=== PATIENT | female | born 1985 | race Caucasian/White ===

== ENCOUNTER → 2017-10-29 14:42 | Outpatient (CLI) | payer OTHER, SELFPAY ==
--- NOTE | 2017-10-29 14:45 | US_ITS ---
US OB transvaginal HISTORY: ITS.REASON: US OB Dates ORDERING PHYSICIAN: Joshua Monroe MD PATIENT AGE: 32 years COMPARISON: None FINDINGS: An intrauterine gestational sac is present with a pole with a crown-rump length of 1.46cm correlating to gestational age of 7w6d . heart tones are present with an FHR of 160 bpm's. Yolk sac is noted. Adnexa: Right ovary has an unremarkable appearance. The left ovary is not demonstrated. IMPRESSION: Live intrauterine gestation at 7 weeks 6 days days as described above. Estimated due date by ultrasound is 06/13/2018
[2017-10-29 16:22] LABS: Basophils # 0.1 K/mm3 (0-0.2); Basophils % 0.5 % (0.1-2.0); Eosinophils # 0.4 K/mm3 (0.0-0.4); Eosinophils % 2.4 % (0.1-12.0); Hematocrit 39.8 % (37.0-47.0); Hemoglobin 13.3 g/dL (12.2-16.2); Lymphocytes # 3.7 K/mm3 (0.7-4.5); Lymphocytes % 23.7 K/mm3 (10-50); Mean Corpuscular HGB Conc 33.4 g/dL (31.8-35.4); Mean Corpuscular Hemoglobin 31.3 pg (27.0-31.2); Mean Corpuscular Volume 93.6 fl (81-99); Mean Platelet Volume 6.9 fl (7.4-10.4); Monocytes # 0.9 K/mm3 (0.1-1.0); Monocytes % 5.7 % (1.7-9.3); Neutrophils # 10.6 K/mm3 (1.8-7.8); Neutrophils % 67.9 % (37.0-80.0); Platelet Count 355 K/mm3 (142-424); Red Blood Count 4.25 M/mm3 (4.20-5.40); Red Cell Distribution Width 12.1 % (11.5-17.5); White Blood Count 15.6 K/mm3 (4.8-10.8)
[2017-10-29 16:23] LABS: MANUAL DIFFERENTIAL MANUAL DIFFERENTIAL (MANUAL DIFF)
[2017-10-29 17:00] LABS: Lymphocytes % 21 % (10-50); Monocytes % 9 % (2-9); Neutrophils % 68 % (42-76); Platelet Estimate Normal; RBC Morphology Normal; Total Cells Counted 100
[2017-10-31 20:32] LABS: HIV Screen 4th Generation wRfx Non Reactive (Non Reactive); Hepatitis B Surface Antigen Negative (Negative); Hepatitis C Antibody 0.1 s/co ratio (0.0-0.9); Rapid Plasma Reagin Ab Titer Non Reactive (NonRea<1:1)
[2017-11-01 09:49] LABS: Rubella Antibodies, IgG 1.24 index (Immune >0.99)
== END ==
PROVIDERS: Family Provider Pediatrics; PCP Nurse Practitioner Obstetrics & Gynecology; Visit Provider Nurse Practitioner Obstetrics & Gynecology
DX: O26.841 Uterine size-date discrepancy, first trimester (principal); Z34.90 Encounter for supervision of normal pregnancy, unspecified, unspecified trimester
CPT/HCPCS: 36415; 76830; 85007; 85025; 86592; 86703; 86762; 86850; 87340; 87380; G0432

== ENCOUNTER → 2018-01-21 10:03 | Outpatient (CLI) | payer OTHER, SELFPAY ==
--- NOTE | 2018-01-21 10:05 | US_ITS ---
US OB /maternal detail: INDICATION: Dates and anatomy ITS.REASON: US OB Complete 20wk+ Anatomy [id number] ORDERING PHYSICIAN: Joshua Monroe MD PATIENT AGE: 32 years TECHNIQUE: ultrasound transabdominal scanning. COMPARISON: No previous relevant studies. FINDINGS: Single viable intrauterine gestation. Cephalic position. Placenta: Posterior placenta grade 1. There is normal amount fluid. The cervix appears satisfactory. Closed and measuring 3.1 cm in length. Complete survey performed and was unremarkable on the submitted images as in PACS. No discrete anomalies identified on survey imaging by technologist. Active fetus. Three-vessel cord with satisfactory umbilical cord insertion. 4- chamber heart noted. Survey of brain & ventricles. Face and neck survey unremarkable. Diaphragm and chest views unremarkable. Abdomen: Both kidneys noted and unremarkable. Stomach noted and satisfactory. Spine: Survey of the spine satisfactory with no anomalies identified nor imaged. Both arms and legs noted. Amniotic Fluid: Adequate. Maternal adnexa: No significant findings. Measurements: Average ultrasound age 20 weeks and 2 days. Gestational Age 19 weeks 4 days. Estimated due date by ultrasound age 306/08/2018. Estimated weight 346 g +/- 51 g grams. BPD = 4.67 cm equaling 20 weeks 1 day OFD = 6.2 cm equaling 20 weeks 6 days HC = 17.24 cm equaling 19 weeks 6 days AC = 14.99 cm equaling 20 weeks 2 days FL = 3.37 cm equaling 20 weeks 4 days Growth Percentile= Heart Rate = 147 bpm Cerebellum = 1.97 cm equaling 20 weeks 1 day Humerus = 3.137 g equaling 20 weeks 3 days HC/AC is 1.15. CI is 75%. FL/BPD is 72% FL/AC is 22%. IMPRESSION: Active viable cephalic fetus, visualized anatomy grossly normal
== END ==
PROVIDERS: PCP Pediatrics; Visit Provider Nurse Practitioner Obstetrics & Gynecology
DX: Z36.0 Encounter for antenatal screening for chromosomal anomalies (principal)
CPT/HCPCS: 76805; 76811

== ENCOUNTER → 2018-04-01 10:49 | Outpatient (CLI) | payer OTHER, SELFPAY ==
[2018-04-01 11:43] LABS: Glucose,Fasting 81 mg/dL (60-105)
[2018-04-01 13:07] LABS: Glucose 1 Hour 147 mg/dL (74-106)
== END ==
PROVIDERS: Visit Provider Nurse Practitioner Obstetrics & Gynecology
DX: O99.810 Abnormal glucose complicating pregnancy (principal); Z34.90 Encounter for supervision of normal pregnancy, unspecified, unspecified trimester
CPT/HCPCS: 36415; 82951

== ENCOUNTER → 2018-05-19 16:55 | Outpatient (CLI) | payer OTHER, SELFPAY | PROVIDERS: Visit Provider Nurse Practitioner Obstetrics & Gynecology | DX: Z34.90 Encounter for supervision of normal pregnancy, unspecified, unspecified trimester (principal) | CPT/HCPCS: 86403 ==

== ENCOUNTER 2018-06-06 04:36 | Inpatient (IN) ==
[2018-06-06 05:42] LABS: Basophils # 0.1 K/mm3 (0-0.2); Basophils % 0.5 % (0.1-2.0); Eosinophils # 0.4 K/mm3 (0.0-0.4); Eosinophils % 2.5 % (0.1-12.0); Hematocrit 34.6 % (37.0-47.0); Hemoglobin 11.6 g/dL (12.2-16.2); Lymphocytes # 4.1 K/mm3 (0.7-4.5); Lymphocytes % 24.6 % (10-50); Mean Corpuscular HGB Conc 33.4 g/dL (31.8-35.4); Mean Corpuscular Volume 89.7 fl (81-99); Mean Platelet Volume 7.1 fl (7.4-10.4); Monocytes # 0.9 K/mm3 (0.1-1.0); Monocytes % 5.2 % (1.7-9.3); Neutrophils # 11.2 K/mm3 (1.8-7.8); Neutrophils % 67.3 % (37.0-80.0); Platelet Count 455 K/mm3 (142-424); Red Blood Count 3.86 M/mm3 (4.20-5.40); Red Cell Distribution Width 13.1 % (11.5-17.5); White Blood Count 16.6 K/mm3 (4.8-10.8)
[2018-06-06 05:59] LABS: Lymphocytes % 24 % (10-50); Monocytes % 2 % (2-9); Neutrophils % 69 % (42-76); RBC Morphology Normal; Rouleaux 2+; Total Cells Counted 100
--- NOTE | 2018-06-06 08:48 | Progress Note ---
Labor Note - Subjective: Date: 06/06/18 Time: 08:15 regular contraction - Objective: NST:: Reactive Contractions:: every 4-5 minutes Cervical Dilation:: 2 Effacement:: 100% Station: -1 Membranes: artificially ruptured Comment:: She had a tight scar on her cervix from her previous LEEP procedure. I was able to pass the amnio hook through the cervix and ruptured membranes. There was clear fluid. I then stuck my finger through her cervix and it dilated immediately to 2 cm. - Fetus: Monitoring?: Yes monitoring type:: External - Assessment: Labor progressing?: Yes Cephalopelvic disproportion?: No Patient Problems: All Active Problems (Acute) - Plan: Anesthesia for epidural?: Yes Continue to labor down?: Yes Plan for ?: No Continue to monitor?: Yes Start pushing?: No
--- NOTE | 2018-06-06 08:50 | History & Physical Report ---
OB - H&P: HPI Antepartum - History of Present Illness Chief complaint: History of precipitous labor History of present illness: She is a 32-year-old 5 para 4 at 39 weeks gestational age. Her last 2 babies have delivered precipitously and she said that as soon as she ruptured her membranes she went into active labor and progressed rapidly to full dilation. As a result of that she was offered induction of labor at term. [place] lives approximately [place]. - History of Present Criteria for establishing EDC:: LMP confirmed by 1st trimester US care: good care Ultrasounds: normal 1st trimester US, normal mid trimester US Obstetrical complications: none Medical complications: none [facility] History I have reviewed the patient's past medical history: Yes *Have you ever received a pneumonia vaccine?: No *Have you received a flu vaccine this season?: No Other Surgeries: No: Amputation: No Fractures: No - *Social History Smoking Status: Current some day smoker Alcohol Intake: never Substance Use Type: denies use *Occupational Status:: employed Family Hx:: No significant family history Para: 4 Review of Systems - Review of Systems Review of systems:: pertinent systems reviewed and negative unless documented below Meds Home Medications Medication Instructions Recorded Confirmed Type ondansetron 4 mg disintegrating 4 mg PO QID PRN #30 tab 01/21/18 06/06/18 Rx tablet Ferrous Sulfate 325 mg PO DAILY 06/06/18 06/06/18 History Vit Calc,Iron,Folic [Kpn] 1 tab PO HS 06/06/18 06/06/18 History raNITIdine HCl [Ranitidine HCl] 150 mg PO BID 06/06/18 06/06/18 History Allergies Allergy/AdvReac Type Severity Reaction Status Date / Time No Known Allergies Allergy Unverified 06/06/18 07:36 OB - H&P: Exam - Constitutional no acute distress - Routine HEENT Exam Head: Present: normocephalic Eye: Present: EOMI, PERRL ENT: Present: mucous membranes moist - Routine Neck Exam Present: supple, full ROM - Routine Respiratory Exam Absent: accessory muscle use (good air entry bilaterally), respiratory distress, wheezes, crackles - Routine Cardiovascular Exam Present: RRR. Absent: murmur - Routine Abdominal Exam Present: soft, normoactive bowel sounds. Absent: tenderness, distended, guarding - Routine Rectal Exam Patient deferred: visual exam, digital exam - Routine Exam Patient deferred: external exam, groin exam, perineal exam - Routine Extremities Exam Present: full ROM. Absent: cyanosis, edema - Routine Skin Exam Present: intact. Absent: cyanosis - Routine Neurological Exam Present: alert, oriented X3 - Routine Psychiatric Exam Present: normal affect OB - Results - Labs Labs: Short CBC 06/06/18 Range/Units 05:25 WBC 16.6 H (4.8-10.8) K/mm3 Hgb 11.6 L (12.2-16.2) g/dL Hct 34.6 L (37.0-47.0) % Plt Count 455 H (142-424) K/mm3 OB - A/P Antepartum (1) History of precipitous labor and deliveries, antepartum Current visit: Yes Status: Acute (2) Normal delivery at term Current visit: Yes Status: Acute - Additional Plan Planning to breastfeed?: Yes Plan: induction Additional Information:: She has a history of precipitous labor in the past as result of that we have elected to induce her labor at term.
--- NOTE | 2018-06-06 09:04 | Progress Note ---
[facility] Anesthesia Checklist - Structural Data Admitted From: Inpatient Planned Operative Procedure/s: labor epidural Consent for Planned Operative Procedure(s) Verified: Yes - Airway Assessment C-Spine Mobility Assessed: Yes TMJ Mobility Assessed: Yes Dentition: Good Dentition - Neurological Assessment Level of Consciousness: Awake, Alert, Appropriate - Anesthesia Plan Anesthesia Risk discussed: Yes Anesthesia Plan: Verified ASA Class: II Anesthesia Type: Epidural [facility] History I have reviewed the patient's past medical history: Yes *Have you ever received a pneumonia vaccine?: No *Have you received a flu vaccine this season?: No Other Surgeries: No: Amputation: No Fractures: No - *Social History Smoking Status: Current some day smoker Alcohol Intake: never Substance Use Type: denies use *Occupational Status:: employed Family Hx:: No significant family history Para: 4
[2018-06-06 09:54] LABS: Microscopic, Urine URINE MICROSCOPIC (MICROSCOPIC)
[2018-06-06 11:33] LABS: Appearance,Urine CLEAR (Clear); Bilirubin,Urine Negative (Negative); Blood, Urine 2+ (Negative); Color,Urine YELLOW (Yellow); Glucose,Urine (UA) Negative (Negative); Ketones,Urine Negative (Negative); Leukocyte Esterase,Urine Negative (Negative); PH,Urine 7.5 (5.0-8.5); Protein,Urine Negative (Negative); Urobilinogen,Urine 0.2 EU/dl (0.2)
[2018-06-06 11:49] LABS: Bacteria,Urine 1+ /lpf
--- NOTE | 2018-06-06 11:51 | Procedure Note ---
- Delivery Note Delivery Date:: 06/06/18 Delivery Time:: 11:37 Anesthesia Type: Epidural Was labor medically induced?: Yes Induction method: per pitocin protocol Gestational age (weeks): 39 Infant delivered prior to 39 weeks?: No Infant Gender: Female at 1 minute: 8 at 5 minutes: 9 Delivery Procedure:: She is a 32-year-old 5 para 4 who has a history of precipitous labor. She lives about [place] from [facility]. As result of that we elected to induce her labor at term. She was started on IV oxytocin and had her membranes ruptured. She progressed to full dilation under labor epidural. She delivered spontaneously a liveborn female child at 11:37 AM on the morning of June 06, 2018. The baby was a liveborn female child with Apgars of 8 at 1 minute and 9 at 5 minutes. On deliver the head there was a tight nuchal cord. I elected to deliver the rest the infant's body atraumatically. I was able to then reduce the cord it was wrapped around the baby's waist as well as once around its neck. We allowed the cord to continue to pulsate for 1 minute. The baby cried spontaneously and the oropharynx and nasopharynx were bulb suction. We then doubly clamped the cord and cut the cord. The baby was then placed on the mother's abdomen for further care. The nurses assigned Apgars of 8 at 1 minute and 9 at 5 minutes. We then obtained cord blood as well as cord pH. Using gentle traction on the cord and countertraction the fundus I was able to easily deliver the placenta intact. He had a normal three-vessel cord. There were no perineal or vaginal lacerations. She has a positive blood, she is rubella immune and was group A streptococcus positive. She did receive IV antibiotics while in labor. Her gyroscopic instrument tester is Dr. Huffman. Estimated blood loss was approximately 400 cc. Placental Delivery Description: Spontaneous
[2018-06-07 05:40] LABS: Hematocrit 35.4 % (37.0-47.0); Hemoglobin 11.7 g/dL (12.2-16.2)
--- NOTE | 2018-06-07 08:14 | Progress Note ---
Internal Medicine - PN: Subj *Date: 06/07/18 *Time: 08:13 Interval history: She continues to do well. She is eating and drinking and ambulating. She is bottlefeeding. Her lochia is normal. Exam Vital signs and Labs for Last 24 Hours: Temp 98.3 F 06/06/18 11:08 Laboratory Results - last 24 hr 06/06/18 09:50: Urine Color Yellow, Urine Appearance Clear, Urine pH 7.5, Ur Specific Edwards 1.010, Urine Protein Negative, Urine Glucose (UA) Negative, Urine Ketones Negative, Urine Blood 2+, Urine Nitrate Negative, Urine Bilirubin Negative, Urine Urobilinogen 0.2, Ur Leukocyte Esterase Negative, Urine RBC 5- 10, Urine WBC 3-5, Ur Squamous Epith Cells 5-10, Urine Bacteria 1+ 06/06/18 11:51: Cord ABG pH 7.37 06/07/18 05:09: Hgb 11.7 L, Hct 35.4 L I & O for Last 24 hours: Intake & Output 06/04/18 06/05/18 06/06/18 06/07/18 10:59 11:59 11:59 11:59 Weight 186 lb - Constitutional no acute distress Assessment and Plan (1) History of precipitous labor and deliveries, antepartum Current visit: Yes Status: Acute Category: Medical Code(s): O09.219 - Supervision of with history of pre-term labor, unspecified trimester (2) Normal delivery at term Current visit: Yes Status: Acute Category: Medical Code(s): O80 - Encounter for full-term uncomplicated delivery - Assessment and plan all Dx Assessment and Plan for all problems:: She is doing well this morning. We will plan to send her home tomorrow.
--- NOTE | 2018-06-08 10:03 | Discharge Summary ---
General - General Admission date:: 06/06/18 Discharge date: 06/08/18 HPI HPI: She is a 32-year-old 5 now para 5 who was 39 weeks gestational age. She has a history of precipitous labor and as result of that was brought in for induction of labor at term. She lives about [place] [address] out of town. Hospital Course Hospital Course: She was started on IV oxytocin. She had her membranes ruptured and under labor epidural progressed to full dilation. She delivered spontaneously a liveborn female child at 11:37 AM on the morning of June 06, 2018. The baby weighed 7 pounds 12 ounces and was 20 inches long. She had Apgars of 8 at 1 minute and 9 at 5 minutes. She has done well and has remained afebrile throughout her hospitalization. She is eating and drinking and ambulating. She is breast- feeding. She has a positive blood, she is rubella immune and was group A streptococcus positive. She did receive IV antibiotics while in labor. She is discharged home to follow-up with me in approximately 2 weeks time. She will continue with her vitamins and iron. She is taking [id number] analgesics. Her condition on discharge is stable. Rhogam Administration: Not Indicated Objective Vital signs: Temp 98.3 F 06/06/18 11:08 DS: Diagnosis - Discharge Diagnosis (1) History of precipitous labor and deliveries, antepartum Status: Acute (2) Normal delivery at term Status: Acute Discharge Plan - Patient Discharge Instructions ACTIVITY: No heavy lifting DIET: continue same diet Patient Instructions: DI for Hemorrhage, DI for Depression, [facility] Post Discharge Instructions - Follow up Plan Follow up with: Joshua Monroe MD [Staff Physician] - 06/20/18 2:45 am Disposition: Home, Self-Intermediate Medications: Home Medications Medication Instructions Recorded Confirmed Type ondansetron 4 mg disintegrating 4 mg PO QID PRN #30 tab 01/21/18 06/06/18 Rx tablet Ferrous Sulfate 325 mg PO DAILY 06/06/18 06/06/18 History Vit Calc,Iron,Folic [Kpn] 1 tab PO HS 06/06/18 06/06/18 History raNITIdine HCl [Ranitidine HCl] 150 mg PO BID 06/06/18 06/06/18 History Prescriptions/Medication Reconciliation: Continue ondansetron 4 mg disintegrating tablet 4 mg PO QID PRN #30 tab PRN Reason: nausea and vomiting Ferrous Sulfate 325 mg PO DAILY Vit Calc,Iron,Folic [Kpn] 1 tab PO HS raNITIdine HCl [Ranitidine HCl] 150 mg PO BID
== END 2018-06-08 11:06 | disposition home or self-care (01) | DRG 807 ==
LOC: OB 04:59
PROVIDERS: ADMIT Nurse Practitioner Obstetrics & Gynecology; ATTEND Nurse Practitioner Obstetrics & Gynecology
CPT/HCPCS: 36415; 59025; 81001; 82800; 85007; 85014; 85018; 85025; 86850; 90715; J0290

== ENCOUNTER 2024-04-28 09:26 | Outpatient (CLI) | payer OTHER, SELFPAY ==
--- NOTE | 2024-04-28 09:27 | US_ITS ---
PROCEDURE: US TRANSVAGINAL CLINICAL INDICATION: Heavy Menstrual Bleeding COMPARISON: No exams were available for comparison FINDINGS: Transvaginal sonographic images of the pelvis were obtained. UTERUS: 9.6 cm x 7.5 cmx 5.4cm anteverted with a combined endometrial thickness of 12.8mm. Are multiple small blebs of the endometrium consistent with adenomyosis. There is a nabothian cyst in the cervix. The posterior wall of the uterus appears thickened and heterogenous and suspect this may be adenomyosis. LEFT OVARY: 1.8 cmx1.5 cmx1.2cm with a volume of 1.7ml. RIGHT OVARY: 2.5cmx 1.8 cm x2.1cm with a volume of 4.6ml. Both ovaries are seen and appear normal. Doppler flow to both ovaries are seen. There is no fluid in the cul-de-sac. IMPRESSION: 1. Anteverted uterus enlarged in size and globular. The endometrium measures 12.8 mm. 2. The endometrial/myometrial border is irregular and adenomyosis is suspected. 3. The posterior wall of the uterus appears thickened and heterogenous. Suspect adenomyosis. 4. Both ovaries are seen and appear normal. 5. No fluid in the cul-de-sac. Dictated by: Joshua Monroe MD 04/28/2024 17:14 Joshua Monroe MD in OV 04/28/2024 17:14
== END 2024-04-28 23:59 | disposition home or self-care (01) ==
LOC: RAD 09:27
PROVIDERS: PCP Pediatrics; Visit Provider Nurse Practitioner Obstetrics & Gynecology
DX: N92.0 Excessive and frequent menstruation with regular cycle (principal)
CPT/HCPCS: 76830

== ENCOUNTER 2024-05-30 15:05 | Outpatient (CLI) | payer OTHER, SELFPAY ==
[2024-05-30 15:38] LABS: Basophils # 0.1 K/mm3 (0-0.2); Basophils % 0.8 % (0.1-2.0); Eosinophils # 0.2 K/mm3 (0.0-0.4); Hematocrit 35.6 % (37.0-47.0); Hemoglobin 11.4 g/dL (12.2-16.2); Mean Corpuscular Hemoglobin 27.2 pg (27.0-31.2); Mean Platelet Volume 10.1 fl (7.4-10.4); Monocytes # 1.3 K/mm3 (0.1-1.0); Monocytes % 10.5 % (1.7-9.3); Neutrophils # 6.5 K/mm3 (1.8-7.8); Neutrophils % 53.4 % (37.0-80.0); Platelet Count 381 K/mm3 (142-424); Red Blood Count 4.19 M/mm3 (4.20-5.40); Red Cell Distribution Width 15.1 % (11.5-17.5); White Blood Count 12.1 K/mm3 (4.8-10.8)
[2024-05-30 15:46] LABS: Chloride 103 mmol/L (98-107)
[2024-05-30 15:47] LABS: Albumin Level 4.5 g/dl (3.5-5.0); Potassium 3.8 mmoL/L (3.5-5.1); Sodium 139 mmol/L (136-145)
[2024-05-30 15:49] LABS: Alanine Aminotransferase 35 U/L (12-78); Anion Gap 11.8 mEq/L (5-15); Aspartate Amino Transferase 32 U/L (14-36); Blood Urea Nitrogen 11 mg/dl (7-17); Carbon Dioxide 28 mmol/L (22.0-30.0); Estimated Glomerular Filt Rate 111 ml/min (>60); GFR (African American) 135 ML/MIN (>60)
[2024-05-30 15:50] LABS: Albumin/Globulin Ratio 1.7 (1.1-1.8); Alkaline Phosphatase 49 U/L (38-126); Calcium 8.7 mg/dl (8.4-10.2); Globulin 2.7 g/dL (1.3-3.2); Glucose 88 mg/dl (74-100); Total Protein,Serum 7.2 g/dl (6.3-8.2)
[2024-05-30 15:51] LABS: Bilirubin,Total 0.1 mg/dl (0.2-1.3)
[2024-05-30 16:05] LABS: HCG,Quantitative < 2 mIU/ml (0-5.42)
== END 2024-05-30 23:59 | disposition home or self-care (01) ==
LOC: PREOP 15:06
PROVIDERS: PCP Pediatrics; Visit Provider Nurse Practitioner Obstetrics & Gynecology
DX: N92.0 Excessive and frequent menstruation with regular cycle (principal)
CPT/HCPCS: 80053; 84702; 85025

== ENCOUNTER 2024-06-01 07:50 | Day surgery (SDC) | payer OTHER, SELFPAY ==
[2024-05-30 15:43] VITALS: BMI 33.2
[2024-06-01] VITALS (11 sets, daily range): BP systolic 148–173; BP diastolic 88–102; PULSE 70–86; RESP 16–18; TEMP 35.7–36.8; O2SAT 93–98
[2024-06-01] MEDS: LACTATED RINGERS 1000ML 1,000 ML 25 ML IV (08:25)
--- NOTE | 2024-06-01 08:55 | EXP.ANES.CKL ---
[facility] Disclaimer: The information contained in this section may have been updated after the patient was seen, as this information can be updated by other users. Medical History Depression Anxiety Surgical History History of appendectomy History of D&C History of hysteroscopy H/O bilateral salpingectomy History of surgery on left wrist Family History Other Family history of cancer Family history of congenital heart defect Social History Smoking Status: Former smoker tobacco type: cigarettes packs per day: 3 alcohol intake: former substance use type: denies use current occupational status: employed Travel in the last 8 weeks: None household members: family current occupational exposures/hazards: No caffeine: Yes Have you lived/traveled outside [place] in past 30 days?: No Contact w/someone who lives/traveled outside US past 30 days?: No Exposure to someone with infectious disease in past 14 days?: No Do you have a fever (greater than 100.4 F or 38 C)?: No Have you tested positive for COVID-19: No Exposed to someone with COVID-19 in past 14 days?: No Do you have a sore throat?: No Do you have a cough?: No Do you have any weakness?: No Do you have any diarrhea?: No Are you experiencing any unusual bleeding?: No Do you have any muscle aches/pain?: No Do you have any abdominal pain?: No Are you experiencing loss of taste or smell?: No [facility] Anesthesia Checklist Patient Identification Patient Identification: Arm Band Structural Data Admitted From: Home Planned Operative Procedure/s: Hysteroscopy, D&C, Novasure Ablation Consent for Planned Operative Procedure(s) Verified: Yes Verified Documents: Surgical Consent and History and Physical NPO Status Verified Time NPO: 00:00 Additional verifications Anesthesia Reactions: No Hx Blood Transfusions: No Blood Transfusion Reaction: No Airway Assessment Mallampati Score:: Class II C-Spine Mobility Assessed: Yes TMJ Mobility Assessed: Yes Dentition: Good Dentition Neurological Assessment Level of Consciousness: Awake, Alert and Appropriate Anesthesia Plan Anesthesia Risk discussed: Yes Anesthesia Plan: Verified ASA Class: II Anesthesia Type: General
[2024-06-01] MEDS: CEFAZOLIN SODIUM 2 GM in 0.9 % SODIUM CHLORIDE 100 ML IV (11:05)
[2024-06-01] MEDS: ROPIVACAINE 0.5% 30ML VIAL 150 MG (11:14)
--- NOTE | 2024-06-01 11:22 | P.OP_ITS ---
Date of procedure: 06/01/24 Pre-op Diagnosis:: Menorrhagia Post-op Diagnosis:: Menorrhagia Procedure performed:: Hysteroscopy, dilation curettage, NovaSure ablation and Surgeon:: Joshua Monroe MD Airline Transport Pilot(s):: None STORE WAREHOUSE ASSOCIATE:: Seema Calleyovani Anesthesia: LMA Estimated blood loss (mL): 25 Clinical Note:: She is a 38-year-old lady who complains of extremely heavy periods. After having discussed the risks and benefits we elected to perform a hysteroscopy, D&C and NovaSure ablation. Operative findings:: She had an anteverted slightly bulky uterus. The endometrial cavity sounded to 11 cm. The depth of the endometrial cavity was 6 cm and the width was 4.7 cm. The endometrium appeared lush but otherwise normal. There appeared to be a small 3 mm polyp on the right side of the endometrium. Operative note:: She was taken to the operating room where LMA anesthesia was found be adequate. She was prepped and draped in the normal sterile fashion in the lithotomy position. A weighted speculum was placed in the vagina and the anterior lip of the cervix was grasped with a tenaculum. The cervix was then dilated to approximately 6 mm. I then inserted a hysteroscope into the uterine cavity and the findings were as previously dictated. I then performed a gentle curettage with a medium curette. I then sounded the uterus and determine the length of the uterus. I then inserted the NovaSure device and determine the width of the endometrial cavity. The length of the cavity was 6 cm and the width was 4.7 cm. This was placed into the NovaSure device. I then ran the device through its program. I further inspected the endometrial cavity and was found to be completely charred. I then injected 30 cc of 0.5% ropivacaine at the 3:00, 5:00, 7:00, and 9:00 positions of the cervix. She tolerated procedure well and was taken to the recovery room in excellent condition. All sponge and instrument counts were correct. The estimated blood loss was less than 25 cc. Condition: stable Disposition: PACU Specimens:: Endometrial curettings Complications:: None
--- NOTE | 2024-06-01 11:29 | P.PNANES_ITS ---
[facility] Anesthesia Record Part I Anesthesia Record I Intake, IV Amount: 700 Hydration: Adequate Estimated blood loss (mL): 15 Urine output (mL): 50 Blood Products used (#): none Blood Pressure: 173/100 SaO2: 93 Pulse Rate: 86 Airway Patency: Patent Respiratory Rate: 16 Temperature: 96.3 F Patient is:: Drowsy and Stable Stable to PACU at:: 11:29
--- NOTE | 2024-06-01 12:59 | EXP.ANES.II ---
[facility] Anesthesia Record Part II Anesthesia Record Part II Discharge Time: 11:54 Destination: Surgical Day Care (OP Surgery) PACU nurse assessment reviewed?: Yes Patient Condition:: Good Anesthesia Complications:: None Swallowing reflex intact?: Yes Airway Patency: Patent Cyanosis?: No Blood Pressure: 158/92 SaO2: 95 Respiratory Rate: 16 Pulse Rate: 77 Temperature: 96.3 F Mental Status: Alert & Oriented Pain level:: 0 Nausea and/or vomitting:: None Intake, IV Amount: 700 Hydration: Adequate
--- NOTE | 2024-06-01 13:04 | P.PNANES_ITS ---
[facility] Anesthesia Record Part II Anesthesia Record Part II Discharge Time: 11:54 Destination: Surgical Day Care (OP Surgery) PACU nurse assessment reviewed?: Yes Patient Condition:: Good Anesthesia Complications:: None Swallowing reflex intact?: Yes Airway Patency: Patent Cyanosis?: No Blood Pressure: 158/92 SaO2: 95 Respiratory Rate: 16 Pulse Rate: 77 Temperature: 96.3 F Mental Status: Alert & Oriented Pain level:: 0 Nausea and/or vomitting:: None Intake, IV Amount: 700 Hydration: Adequate
== END 2024-06-01 12:35 | disposition home or self-care (01) ==
PROVIDERS: PCP Pediatrics; Visit Provider Nurse Practitioner Obstetrics & Gynecology
PROC: 0U5B8ZZ Destruction of Endometrium, Via Natural or Artificial Opening Endoscopic (ICD-10-PCS; CPT 58563; principal; 2024-06-01 09:30)
DX: N71.1 Chronic inflammatory disease of uterus (principal); N92.0 Excessive and frequent menstruation with regular cycle
CPT/HCPCS: 58563; J0690; J1100; J1885; J2250; J2405; J3010; J7120